=== PATIENT | male | born 1980 | race Caucasian/White ===

== ENCOUNTER → 2020-07-29 | Outpatient (CLI) | payer OTHER ==
[~2020-07-29] MED LIST: LOVENOX SY30 MG/0.3 SQ; NEURONTIN 300300 MG PO; PHENERGAN 25 MG25 M1 PO; ROXICODONE15 MG PO; WELLBUTRIN SR150 M1 PO; ZOFRAN4 MG PO
[2020-07-29 13:17] LABS: BUN/CREATININE RATIO 16 (0-10)
[2020-08-07 23:11] LABS: AMPHETAMINES, URINE Negative ng/mL (Cutoff=1000); BARBITURATE Negative ng/mL (Cutoff=200); BENZODIAZEPINES Negative ng/mL (Cutoff=200); CANNABINOID Positive (Cutoff=20); CANNABINOIDS See Final Results ng/mL (Cutoff=20); CARBOXY THC GC/MS CONF >300 ng/mL (Cutoff=10); COCAINE (METABOLITE) Negative ng/mL (Cutoff=300); CREATININE 202.1 mg/dL (20.0-300.0); MEPERIDINE Negative ng/mL (Cutoff=200); METHADONE Positive (Cutoff=300); METHADONE See Final Results ng/mL (Cutoff=300); METHADONE GC/MS CONF 20260 ng/mL (Cutoff=100); OPIATES Negative ng/mL (Cutoff=300); PHENCYCLIDINE Negative ng/mL (Cutoff=25); PROPOXYPHENE Negative ng/mL (Cutoff=300)
== END ==
LOC: LAB 12:09
PROVIDERS: Family Medicine
DX: R73.03 Prediabetes (principal); I10 Essential (primary) hypertension; E55.9 Vitamin D deficiency, unspecified; Z79.899 Other long term (current) drug therapy
CPT/HCPCS: 36415; 80053; 80061; 80307; 83036

== ENCOUNTER → 2021-11-23 | Outpatient (CLI) | payer OTHER ==
[2021-11-23 09:59] LABS: BUN/CREATININE RATIO 11 (0-10)
== END ==
LOC: LAB 08:56
PROVIDERS: Family Medicine
DX: Z02.89 Encounter for other administrative examinations (principal); E11.65 Type 2 diabetes mellitus with hyperglycemia
CPT/HCPCS: 36415; 80053; 80061; 80307